=== PATIENT | female | born 1955 | race Caucasian/White ===

== ENCOUNTER 2017-02-14 18:18 | Inpatient (IN) | payer MEDICAID ==
[~2017-02-14] VITALS: Ht 162.5 cm; Wt 68.0 kg
--- NOTE | ~2017-02-14 | DS ---
[place], [place] DISCHARGE SUMMARY NAME: [facility] [id number] UNIT #: [id number] ROOM: 309 DOCTOR: ARVIND ORTIZ BIRTHDATE: [birth year] DOS: 02/23/2017 HISTORY OF PRESENT ILLNESS: This is a 62-year-old female, sent here on an involuntary basis from [facility]. She presented with increasingly more despondent and depressed. She describes homicidal feelings towards her roommate, wanting to stab her with insulin needle due to her perceived body odor. She expressed interest in killing herself and taking overdose of her pills. She reported that voices had increased in intensity and have been telling her to do bad things. She endorses significant neurovegetative symptoms, poor sleep, appetite, energy, anhedonia, hopelessness, helplessness, feeling crying spells, inability to cope. All this despite being on a significant dose of Haldol, very high dose of Geodon, high dose of Remeron and multiple other drugs. She was admitted to rule out organic factors and stabilize on medications. PAST MEDICAL HISTORY: COPD, diabetes, urinary retention, liver disease, osteoarthritis, schizoaffective disorder. DIAGNOSIS: Schizoaffective disorder. HOSPITAL COURSE: We lowered her Remeron from 45 mg every day down to 15 mg every day to improve her overall sleep, help with depression. We eventually ended up adding Rozerem 8 mg at bedtime to it to help with her sleep and allow the Remeron to work as an antidepressant as well. We discontinued her Haldol, her Geodon and her Cogentin. We started her on Invega p.o. tabs 6 mg in the morning with a goal to if she tolerates it without side effects to switch her over to the Invega Sustenna. She received her initial loading dose of Invega Sustenna then and then a second loading dose received today on 02/23/2017. She will then have her maintenance dose every month. The voices seem to diminish and she stated that they are still there, but they were no longer in control or telling her to do bad things. By simplifying her meds were hoping to make her more compliant. Down the road, if she ends up repeatedly coming back and the Invega Sustenna no longer works, Dr. Mccann said he would consider Clozaril, but with her level of noncompliance, we were fearful that she would not take the medication or refuse blood work, so we felt the Invega Sustenna was the best option for this patient. MENTAL STATUS: She is alert and oriented to person, place, approximate time, there are some gaps. Mood is euthymic. Affect is appropriate. There are no overt signs of auditory or visual hallucinations, but when you ask her, she states that they are still there, but they are quiet and in the back. No delusions, paranoia, jazmin or hypomania. PLAN: The patient is being discharged in stable condition. She will have a maintenance dose of Invega Sustenna of 117 mg every month, next dose is due on 03/26/2017. She is on Remeron 15 mg at bedtime to help with sleep and depression and to keep her appetite up and Rozerem 8 mg at bedtime to also help with her sleep. She was found to be severely vitamin D deficient and we started her on 50,000 international units of vitamin D every week as well. She has a case management assistant and she should follow up with either her primary care doctor or [place], [place] DISCHARGE SUMMARY NAME: RENE SOTO UNIT #: [id number] ROOM: 309 DOCTOR: ARVIND ORTIZ BIRTHDATE: [birth year] psychiatrist for further medication management. DARA ORTIZ CNP CM:DISCHARG [phone] ARVIND ORTIZ 02/23/171833 interface
--- NOTE | ~2017-02-14 | PR ---
[place], [place] PROGRESS NOTE [id number] UNIT #: [id number] ROOM: 309 DOCTOR: BELLO CALIXTO MD BIRTHDATE: [birth year] DOS: 02/18/2017 INTERVAL NOTE CHIEF COMPLAINT: "I didn't sleep well, the voices kept me up." SUMMARY OF THE VISIT: The patient was interviewed as she sat in the dining room. Her initial question was when she would be able to leave the hospital and go home. She reports that she is still experiencing continued auditory hallucinations, some of them still of the command type and she did not sleep well last night because the voices were persistent throughout the night. She did receive the Invega Sustenna injection and remains on oral Invega as well, but still is having symptoms. She denies any side effects from the Invega itself. MENTAL STATUS: She is alert and oriented with some time gaps. Mood still seems rather depressed. Affect is flat, blunted with a constricted range. She endorses positive auditory hallucinations, some of command type. There is no jazmin or hypomania. Memory is fairly intact. PLAN: I will increase the Remeron from 15 to 22.5 mg at bedtime to see if this gives any better sleep. I will also add Rozerem 8 mg at bedtime. At this point, maintain the Invega Sustenna and the oral Invega, monitor and support, engage in individual and azar milieu activities, returning home when stable. BELLO CALIXTO MD CM:PNTRANS [phone] BELLO CALIXTO MD 02/18/17 0754 interface
--- NOTE | ~2017-02-14 | PR ---
[place], [place] PROGRESS NOTE [id number] UNIT #: [id number] ROOM: 309 DOCTOR: ARVIND ORTIZ BIRTHDATE: [birth year] DOS: 02/17/2017 CHIEF COMPLAINT: "Good morning." SUMMARY OF VISIT: The patient was assessed in the dining room where she was eating breakfast. I did notice rolling hand tremors with her one arm under the table. The patient offered almost immediately that the hallucinations are much less and that she is feeling better. They are not completely gone, but is not as often and was asking when she could go home. Only complaint she is per nursing is that the patient has a significant wet cough and she also has a significant hernia, which is being activated by the cough. MENTAL STATUS: The patient is alert and oriented to person, place, approximate time. Mood still appears depressed, but is trending towards euthymic. Affect is very flat, blunted, in the constricted range, but she was on copious amounts of antipsychotics and I wonder if now this is just her baseline. Again, she does endorse positive auditory or visual hallucinations, but states that they are significantly improved. No jazmin or hypomania. Delusions seem less. PLAN: I did discuss this with Dr. Mccann. I am going to go ahead and load her with Invega Sustenna 234 mg IM now. I will go ahead and schedule the next loading dose for next Tuesday. When she is discharged, we will discontinue her Invega p.o. I am going to go ahead and pull away on the Vraylar since we are loading her with the Invega Sustenna. The EPS that we are seeing may be somewhat left over from all the antipsychotics that she was on. We will continue to monitor that. I am to go ahead and order some Tessalon Perles also because she is complaining that her hernia is really bothering her because she is coughing so much. I have also asked the nurses to give her some form of pillow so that she can brace that area when she has her coughing fits. We will continue to engage in individual and azar milieu therapy and plan to discharge once stable. DARA ORTIZ CNP CM:PNTRANS [id number] ARVIND ORTIZ 02/17/17 1238 interface
--- NOTE | ~2017-02-14 | PR ---
[place], [place] PROGRESS NOTE NAME: RENE SOTO UNIT #: [id number] ROOM: 309 DOCTOR: MADELINE RICH BIRTHDATE: [birth year] DOS: CHIEF COMPLAINT: "Can I go home Tuesday?" She was seen lying in her bed. She has IV fluids running right now and her labs are actually improving with this IV fluids running. She reports good sleep and appetite. She denies any further AV hallucinations, states that she actually feels better and that she is ready to return home. MENTAL STATUS EXAMINATION: She is still alert and oriented. Her mood is still rather depressed, but she says she is actually feeling better. There is no jazmin or hypomania and her memory is intact. PLAN: Yesterday we decreased her Remeron back down to 15 mg and she did sleep better, so we will keep that where it is and maintain her on the Invega Sustenna. We will continue to monitor and support her and engage her in individual and azar milieu activities and return home as soon as she is stable. Madeline Rich NP CM:PNBLAYNE [phone] MADELINE RICH 02/20/171907 interface
--- NOTE | ~2017-02-14 | PR ---
[place], [place] PROGRESS NOTE NAME: RENE SOTO UNIT #: [id number] ROOM: 309 DOCTOR: ARVIND ORTIZ BIRTHDATE: [birth year] DOS: 02/16/2017 CHIEF COMPLAINT: "Good morning." SUMMARY OF VISIT: The patient was assessed and interviewed in the dining room. She had finished her breakfast. She engaged in conversation. No voiced complaints from the nursing. The patient did tell me immediately that she still seeing people in her room. MENTAL STATUS EXAMINATION: She is alert and oriented to person, place, approximate time. Mood is overwhelmingly depressed. Affect is quite flat, blunted in the constricted range. She does continue to talk softly and mumble. She endorses positive auditory and visual hallucinations. There is no jazmin or hypomania. Some delusions and slightly paranoid with me. PLAN: I increased her Invega to 9 mg q.a.m. The goal is to eventually load her with Invega Sustenna. We will continue to adjust medications as needed. She was on multiple antipsychotics, so it may take a while to find a combination that works for her. We will continue to engage in individual and azar milieu therapy with the plan to discharge once stable. DARA ORTIZ CNP CM:PNBLAYNE [id number] ARVIND ORTIZ 02/16/17 0150 interface
--- NOTE | ~2017-02-14 | PR ---
[place], [place] PROGRESS NOTE NAME: RENE SOTO UNIT #: [id number] ROOM: 309 DOCTOR: BELLO CALIXTO MD BIRTHDATE: [birth year] DOS: 02/21/2017 CHIEF COMPLAINT: "I would like to go home soon." SUMMARY OF THE VISIT: The patient was interviewed as she sat in her bedroom on the edge of her bed. She reported that she is feeling better and reports that the voices in her head have pretty much subsided. She is sleeping well through the night. She does seem to be much more goal directed in her thinking and not as preoccupied as she previously had been. She denies any medication side effects and notes no somnolence, sedation, extrapyramidal symptoms, or tardive dyskinesia. MENTAL STATUS: She is alert and oriented with some mild time gaps. Mood does seem to be trending towards euthymia. Affect is much more appropriate. There are no symptoms of jazmin or hypomania. There are no overt auditory or visual hallucinations noted. Short, intermediate, and long-term memory are fully intact. PLAN: I will renew her Ativan in case she requires p.r.n. intervention. At this point, now that the Invega Sustenna has had days to start building up a blood level, I will discontinue the oral Invega and monitor and support. She is due for her secondary loading dose of Invega Sustenna of 156 mg on February 23. We will proceed with this and finalize discharge plans. BELLO CALIXTO MD CM:PNTRANS [phone] BELLO CALIXTO MD 02/21/17 0858 interface
--- NOTE | ~2017-02-14 | PR ---
[place], [place] PROGRESS NOTE NAME: RENE SOTO UNIT #: [id number] ROOM: 309 DOCTOR: ARVIND ORTIZ BIRTHDATE: [birth year] DOS: 02/21/2017 CHIEF COMPLAINT: "Good morning." SUMMARY OF VISIT: The patient was assessed in the dining room, where she was beginning to eat breakfast. She is being a little bit agitated, exit seeking, and wanting to go home, requiring some p.r.n. medications. I discussed immediately with the patient the need for her to have her second loading dose of Invega early tomorrow morning and then asked her if she would feel up to it at that point, if I could discharge her to home, trying to deescalate any increased agitation. The patient was actually agreeable to that. I told her that we would help her get things ready in her room and work on today getting plans as far as transportation and making sure that the medication is here so she can be out first thing in the morning, and she was agreeable. MENTAL STATUS: She is alert and oriented to person, place. There are some gaps. Mood is euthymic. She did have some increased agitation, anxiety last night, just wanting out of here, and I think because she did have confirmation that she was going to be able to get out of here anytime soon. Affect is appropriate. No jazmin, hypomania. No overt signs of auditory or visual hallucinations. PLAN: Again, she will receive her second loading dose of Invega Sustenna tomorrow at 156 mg IM and then that will be then monthly, and we will get her discharged with home health and participation of her field nurse case manager. DARA ORTIZ CNP CM:PNTRANS [phone] ARVIND ORTIZ 02/22/172239 interface
--- NOTE | ~2017-02-14 | WRIGHTHP ---
[place], [place] PATIENT HISTORY AND PHYSICAL EXAM [id number] UNIT #: [id number] ROOM: 309 DOCTOR: BELLO CALIXTO MD BIRTHDATE: [birth year] DOS: 02/15/2017 INITIAL PSYCHIATRIC EVALUATION CHIEF COMPLAINT: "I am so depressed and the voices are so bad." HISTORY OF PRESENT ILLNESS: This is a 62-year-old white female who was sent here on an involuntary basis from [facility]. The patient had presented there stating that she was increasingly more despondent and depressed. She also described having homicidal feelings towards her roommate wanting to take and stab her with an insulin needle due to her perceived body odor. She also had expressed an interest to kill herself and take an overdose of her pills. She reports that the voices have increased in intensity and have been telling her to do bad things. She also endorses significant neurovegetative symptoms such as poor sleep and appetite, energy, anhedonia, hopeless and helpless feelings, crying spells, and inability to cope. This all despite being on a significant dose of Haldol, a very high dose of Geodon, a high dose of Remeron, and multiple other drugs. She is admitted now to rule out organic factors and attempt to stabilize on medication. PAST MEDICAL HISTORY: Remarkable for COPD; diabetes; urinary retention; liver disease, unspecified; osteoarthritis; and a history of schizoaffective disorder. ALLERGIES: The patient has allergies to CATS, PENICILLINS, CIPRO, TEQUIN, AND POLLEN. MENTAL STATUS: The patient is alert and oriented to person, place, and approximate to time. Mood seems down and depressed. She is rather flat and blunted with a very constricted range. She talks very softly and at times mumbled. She endorses positive command auditory hallucinations, but feels that she is safe here and will not do anything to harm herself. She denies current homicidal ideation. There is no jazmin or hypomania. Memory seems relatively intact. DIAGNOSIS: Schizoaffective disorder. PLAN: I have already lowered her Remeron from 45 mg a day down to 15 to improve her overall sleep architecture. and at the time of admission, I have discontinued her oral Haldol and her oral Geodon as well as her Cogentin. Instead, I will start her on Invega 6 mg in the morning with the intent to switch to Invega Sustenna. I have also started her on Vraylar at night 1.5 mg at bedtime planning to increase this to 3. Given the fact that she was on 3 antipsychotics; both Haldol Decanoate, oral Haldol, and an extreme high dose of Geodon. I am going to go ahead and ear on the side of using two antipsychotics making one of them and decanoate prep to improve compliance in order to break her psychosis. My other option is to consider using Clozaril, but as I do not know her level of compliance, I am fearful that she would not take the medication and/or refuse blood work. Will engage her in individual and azar milieu activity with the ultimate plan to return home when stable. [place], [place] PATIENT HISTORY AND PHYSICAL EXAM NAME: RENE SOTO UNIT #: [id number] ROOM: 309 DOCTOR: BELLO CALIXTO MD BIRTHDATE: [birth year] BELLO CALIXTO MD CM:HISPHYS:PATIENT HISTORY AND PHYSICAL EXAMINATION 7 1 BELLO CALIXTO MD 02/15/17811 interface
--- NOTE | ~2017-02-14 | PR ---
[place], [place] PROGRESS NOTE NAME: RENE SOTO UNIT #: [id number] ROOM: 309 DOCTOR: MADELINE RICH BIRTHDATE: [birth year] DOS: 02/19/2017 CHIEF COMPLAINT: "I didn't sleep well last night." SUBJECTIVE: She was seen lying in her bed. She was asleep, but awakened easily. She says that she continues to have problems with sleeping. She has a good appetite though and no other complaints. She states she has no side effects from her current medications. She is on Invega. She stated that she was actually doing okay. Her Remeron was increased to 22.5 to try to assist her with sleep. It does not seem to be helping, so we will decrease it back to 15 mg and see if that helps her to sleep any better. Madeline Rich NP CM:BHARATI [id number] MADELINE RICH 02/19/17 1318 interface
[2017-02-14] MEDS ORDERED: AMARYL2 MG PO (18:31)
[2017-02-14] MEDS ORDERED: CO Q10200 MG PO (18:33)
[2017-02-14] MEDS ORDERED: COGENTIN0.5 MG PO (18:34)
[2017-02-14] MEDS ORDERED: GEODON40 MG PO (18:35)
[2017-02-14] MEDS ORDERED: GEODON60 MG PO (18:35)
[2017-02-14] MEDS ORDERED: HALDOL5 MG PO ×2 (18:35→18:36)
[2017-02-14] MEDS ORDERED: KAYEXALATE1 PDR PO (18:37)
[2017-02-14] MEDS ORDERED: LIPITOR40 MG PO (18:38)
[2017-02-14] MEDS ORDERED: MAGNESIUM400 M1 PO (18:39)
[2017-02-14] MEDS ORDERED: SINGULAIR10 M1 PO (18:40)
[2017-02-14] MEDS ORDERED: PRILOSEC20 M1 PO (18:41)
[2017-02-14] MEDS ORDERED: REMERON45 M1 PO (18:41)
[2017-02-14] MEDS ORDERED: SENOKOT1 TAB PO (18:44)
[2017-02-14] MEDS ORDERED: SPIRIVA -- 3018 MCG INH (18:45)
[2017-02-14] MEDS ORDERED: SYMBICORT1 AE1 INH (18:46)
[2017-02-14] MEDS ORDERED: THERAGRAN-M PR1 EACH PO (18:47)
[2017-02-14] MEDS ORDERED: VISTARIL25 M2 PO (18:48)
[2017-02-14] MEDS ORDERED: ZYRTEC10 MG PO (18:50)
[2017-02-14] MEDS ORDERED: HALDOL DECA100 MG/ML IM (18:59)
[2017-02-14 23:19] VITALS: BP 126/59
[2017-02-15 07:42] LABS: BASO % 0.2 % (0.0-1.0); EOS # 0.1 10*3/uL (0.0-0.4); EOS % 1.3 % (1.0-4.0); HEMATOCRIT 40.6 % (37.0-47.0); HEMOGLOBIN 13.1 g/dl (12.0-16.0); LYMPH % 16.4 % (27.0-41.0); MEAN CELL VOLUME 88.3 fl (81.0-99.0); MEAN CORPUSCULAR HGB 28.5 pg (27.0-31.0); MEAN CORPUSCULAR HGB CONC 32.3 g/dl (33.0-37.0); MEAN PLATELET VOLUME 8.6 fl (9.6-12.3); MONO # 0.4 10*3/uL (0.1-1.0); MONO % 6.4 % (3.0-9.0); NEUT # 4.5 10*3/uL (2.3-7.9); NEUT % 75.4 % (47.0-73.0); PLATELET COUNT AUTOMATED 239 10*3/uL (130-400); RED CELL DISTRI WIDTH 15.2 % (0-14.5)
[2017-02-15 08:14] LABS: ALBUMIN 3.3 gm/dl (3.1-4.5); ALKALINE PHOSPHATASE 124 U/L (45-117); BILIRUBIN, TOTAL 0.3 mg/dl (0.2-1.0); BUN 11 mg/dl (7-24); CARBON DIOXIDE 28 mmol/L (21-32); CHLORIDE 103 mmol/L (98-107); EST GLOM FILT AFRICAN AMERICAN > 60 ml/min; GLUCOSE 90 mg/dL (65-99); POTASSIUM 4.8 mmol/L (3.5-5.1); SGOT/AST 12 IU/L (3-35); SGPT/ALT 23 U/L (12-78); SODIUM 134 mmol/L (136-145); TOTAL PROTEIN 7.3 gm/dL (6.4-8.2)
[2017-02-15 08:15] VITALS: BP 118/65
[2017-02-15 09:14] LABS: HEMOGLOBIN A1c 5.6 % (4.8-5.6)
[2017-02-15 10:00] LABS: VITAMIN D, 25-HYDROXY 26.4 ng/mL (30-100)
[2017-02-15] MEDS ORDERED: CHLORHEXIDINE PO (13:40)
[2017-02-15] MEDS ORDERED: IBUPROFEN600 MG PO (13:41)
[2017-02-15 20:00] VITALS: BP 104/50
[2017-02-16 07:14] VITALS: BP 117/60
[2017-02-16 19:34] VITALS: BP 110/63
[2017-02-17 08:00] VITALS: BP 97/52
[2017-02-17 19:43] VITALS: BP 112/62
[2017-02-18 06:51] LABS: BASO % 0.1 % (0.0-1.0); EOS # 0.1 10*3/uL (0.0-0.4); EOS % 0.7 % (1.0-4.0); HEMATOCRIT 39.9 % (37.0-47.0); HEMOGLOBIN 13.2 g/dl (12.0-16.0); LYMPH # 1.1 10*3/uL (1.3-4.4); LYMPH % 9.8 % (27.0-41.0); MEAN CELL VOLUME 88.7 fl (81.0-99.0); MEAN CORPUSCULAR HGB 29.3 pg (27.0-31.0); MEAN CORPUSCULAR HGB CONC 33.1 g/dl (33.0-37.0); MEAN PLATELET VOLUME 8.8 fl (9.6-12.3); MONO # 0.6 10*3/uL (0.1-1.0); MONO % 5.8 % (3.0-9.0); NEUT # 9.1 10*3/uL (2.3-7.9); NEUT % 83.3 % (47.0-73.0); PLATELET COUNT AUTOMATED 214 10*3/uL (130-400); RED CELL DISTRI WIDTH 15.1 % (0-14.5)
[2017-02-18 07:26] LABS: BUN 11 mg/dl (7-24); CARBON DIOXIDE 27 mmol/L (21-32); CHLORIDE 105 mmol/L (98-107); GLUCOSE 93 mg/dL (65-99); MAGNESIUM 1.9 mg/dL (1.5-2.1); PHOSPHOROUS 3.2 mg/dL (2.5-4.9); POTASSIUM 5.5 mmol/L (3.5-5.1); SODIUM 134 mmol/L (136-145)
[2017-02-18 07:29] LABS: EST GLOM FILT AFRICAN AMERICAN > 60 ml/min
[2017-02-18 07:47] VITALS: BP 104/50
[2017-02-18 19:32] VITALS: BP 110/67
[2017-02-19 07:30] VITALS: BP 107/61
[2017-02-19 17:34] LABS: POTASSIUM 5.6 mmol/L (3.5-5.1)
[2017-02-19 19:12] VITALS: BP 112/65
[2017-02-20 07:41] VITALS: BP 115/62
[2017-02-20 07:58] LABS: BUN 11 mg/dl (7-24); CARBON DIOXIDE 24 mmol/L (21-32); CHLORIDE 110 mmol/L (98-107); EST GLOM FILT AFRICAN AMERICAN > 60 ml/min; GLUCOSE 86 mg/dL (65-99); POTASSIUM 5.4 mmol/L (3.5-5.1); SODIUM 139 mmol/L (136-145)
[2017-02-20 19:52] VITALS: BP 122/59
[2017-02-21 07:44] VITALS: BP 130/60
[2017-02-21 20:00] VITALS: BP 120/58
[2017-02-22 08:00] VITALS: BP 106/53
[2017-02-22 20:00] VITALS: BP 107/57
[2017-02-23] MEDS ORDERED: NATURE'S BLEN1000 IU PO (07:32)
[2017-02-23] MEDS ORDERED: MIRTAZAPINE15 M2 PO (07:43)
[2017-02-23] MEDS ORDERED: ROZEREM8 MG PO (07:43)
[2017-02-23] MEDS ORDERED: VITAMIN D50000 I3 PO (07:43)
[2017-02-23 08:05] LABS: BUN 14 mg/dl (7-24); CARBON DIOXIDE 29 mmol/L (21-32); CHLORIDE 105 mmol/L (98-107); EST GLOM FILT AFRICAN AMERICAN > 60 ml/min; GLUCOSE 99 mg/dL (65-99); MAGNESIUM 2.3 mg/dL (1.5-2.1); POTASSIUM 5.6 mmol/L (3.5-5.1); SODIUM 138 mmol/L (136-145)
== END 2017-02-23 11:15 | disposition home or self-care (01) | DRG 885 ==
LOC: 3N 18:18
PROVIDERS: Internal Medicine; Internal Medicine Hospice and Palliative Medicine; Psychiatry & Neurology Psychiatry
DX: F20.0 Paranoid schizophrenia (principal); E11.8 Type 2 diabetes mellitus with unspecified complications; R45.851 Suicidal ideations; N39.0 Urinary tract infection, site not specified; J44.9 Chronic obstructive pulmonary disease, unspecified; R33.9 Retention of urine, unspecified; F41.9 Anxiety disorder, unspecified; M13.0 Polyarthritis, unspecified; K76.9 Liver disease, unspecified; Z88.0 Allergy status to penicillin; Z88.1 Allergy status to other antibiotic agents; Z87.891 Personal history of nicotine dependence; Z88.8 Allergy status to other drugs, medicaments and biological substances; Z99.81 Dependence on supplemental oxygen; Z79.899 Other long term (current) drug therapy